=== PATIENT | male | born 1950 | race Caucasian/White ===

== ENCOUNTER 2017-01-01 21:50 | Inpatient (IN) ==
[2017-01-01] MEDS ORDERED: METHOCARBAMOL 1,000 MG/10 ML VIAL IV STA (22:11)
[2017-01-01] MEDS ORDERED: methylPREDNISolone SOD SUC 125 MG/2 ML VIAL IV STA (22:11)
[2017-01-01] MEDS ORDERED: traMADol 50 MG TABLET PO STA (22:13)
--- NOTE | 2017-01-01 22:16 | Emergency Department Note ---
Arrival - Arrival Chief Complaint: Chest Pain Stated Complaint: CHEST PAINS/HARD TO BREATHE ED Nursing Triage Note: C/O Chest pain over left breast worsening with inspiration/movement/palpation. Onset 1999 while watching TV. Pt denies injury or any heavy lifting. Mode of Arrival: Ambulatory Limitations: No Limitations Source: Patient Time Seen by Provider: 01/01/17 22:10 - History of Present Illness HPI Narrative: This 66-year-old white male presents 2 hours post onset of high left anterior axillary line mechanical chest wall pain. The patient was watching TV when he reached over to grab a beverage and felt a grabbing pain high up the left anterior chest wall. The pain has progressed such that with motion such as driving and turning the steering wheel is giving him significant discomfort. He denies any diaphoresis, shortness of breath, nausea, or vomiting associated with this episode. He does not have a prior history of cardiovascular disease. Currently he is in no acute distress but still uncomfortable. Onset (ago): hour(s) (Patient presents 2 hours post onset of symptoms) Allergies/Adverse Reactions: Allergies Allergy/AdvReac Type Severity Reaction Status Date / Time aspirin Allergy Severe ANAPHYLAXIS Verified 01/01/17 21:56 Home Medications: Home Medications Medication Instructions Recorded Confirmed Type No Known Home Medications [No 01/01/17 01/01/17 History Known Home Medications] Review of System - Review of System 12 point system: reviewed and no additional remarkable complaints except as stated - Review of System Constitutional: Present: as per HPI Respiratory: Present: as per HPI Cardiovascular: Present: as per HPI Gastrointestinal: Present: as per HPI Medical,Surgical,& Family Hx - Social History Smoking Status: Never smoker Frequency of Alcohol Use: None Type of Drug Use: None Exam Physical Examination: GENERAL: Well developed, well nourished elderly white male in no acute distress. HEENT: Normocephalic. No trauma. Moist mucous membranes. EOMI. PERRLA. ENT NML NECK: Supple. No adenopathy. CARDIAC: Regular. No murmurs. Heart rate 94 CHEST: Clear to auscultation. No respiratory distress. O2 sat 97%. Tender area high along the anterior axillary line with palpation and irritation of the area with range of motion the left arm consistent with a pectus muscle pull or spasm. ABDOMEN: Soft. Nontender. Active bowel sounds. EXTREMITIES: No trauma. Normal ROM. No pedal edema. SKIN: No diaphoresis. No rash. NEURO: Alert. Oriented 3. Motor, sensory, vibratory intact. No focal deficits. Vital Signs: Vital Signs Temperature 98.8 F 01/01/17 22:17 Pulse Rate 88 01/01/17 22:17 Respiratory Rate 14 01/01/17 22:17 Blood Pressure 156/79 01/01/17 22:17 O2 Sat by Pulse Oximetry 97 01/01/17 21:56 Course - Reevaluation(s) Reevaluation #1: Advised patient of his emboli and on questioning him about a possible source it would seem that he has had problems with left lower extremity thigh pain medially. - Consultations Consultation #1: Discussed with hospitalist service who will admit for further evaluation treatment. Results - Labs CBC & BMP: 01/01/17 22:13 01/01/17 22:13 Labs: I have reviewed the laboratory noted its gross normalcy. - Impressions EKG: Sinus rhythm at 85, normal GA interval and QRS duration. Left ventricular hypertrophy noted with nonspecific ST changes. No acute injury pattern noted. - Diagnostic Findings Procedure: Chest x-ray: image reviewed by me, report reviewed by me (Left pleural reaction left CVA but otherwise normal chest), CT - chest: image reviewed by me, report reviewed by me (Bilateral pulmonary emboli involving both lower lobes and the lingula segment. Likewise noted is possible metastatic disease to liver.) Disposition Clinical Impression: Bilateral pulmonary emboli, Possible metastatic disease to the liver Case discussed with: patient Disposition: Still a Patient Condition: Guarded Time of Disposition: 00:53
[2017-01-01 22:21] LABS: Basophils # 0.1 10*3/uL (0.0-0.2); Basophils % 0.6 % (0.0-0.8); Eosinophils # 0.2 10*3/uL (0.0-0.87); Hematocrit 44.8 VOL% (42.0-52.0); Hemoglobin 15.4 GM/DL (14.0-18.0); Immature Granulocytes % 0.6 %; Immature Granulocytes Absolute 0.07 #; Lymphocytes # 2.2 10*3/uL (1.4-4.0); Lymphocytes % 18.9 % (21.2-54.2); Mean Corpuscular HGB Conc 34.4 GM/DL (32-36); Mean Corpuscular Hemoglobin 30 PG (27-34); Mean Platelet Volume 10.2 FL (9.6-12.0); Monocytes # 1.2 10*3/uL (0.11-0.8); Monocytes % 10.7 % (1.7-12.7); Neutrophils # 7.8 10*3/uL (1.4-7.4); Neutrophils % 67.2 % (38.7-73.9); Platelet Count 212 T/CUMM (130-400); Red Blood Count 5.09 MC/CUMM (3.8-5.5); Red Cell Distribution Width 11.8 % (9.3-17.3); White Blood Count 11.6 T/CUMM (4-12)
[2017-01-01] MEDS ORDERED: METHOCARBAMOL 1,000 MG/10 ML VIAL ONE (22:27)
[2017-01-01] MEDS ORDERED: traMADol 50 MG TABLET ONE (22:27)
[2017-01-01] MEDS ORDERED: methylPREDNISolone SOD SUC 125 MG/2 ML VIAL ONE (22:27)
[2017-01-01 22:55] LABS: Alanine Aminotransferase 22 U/L (16-61); Albumin 3.8 G/DL (3.4-5.0); Alkaline Phosphatase 57 U/L (45-117); Aspartate Amino Transferase 15 U/L (0-37); Blood Urea Nitrogen 12 MG/DL (7-18); Calcium 9.5 MG/DL (8.5-10.1); Glucose 112 MG/DL (74-106); Osmolality,Calculated 279.4 MOS/KG (273-304); Potassium 3.8 MMOL/L (3.5-5.1); Sodium 140 MMOL/L (136-145); Total Protein 7.2 G/DL (6.4-8.3); Troponin I Only < 0.015 NG/ML (0.00-0.045)
[2017-01-02] MEDS ORDERED: ENOXAPARIN 100 MG/ML SYRINGE SUBCUT STA (00:03)
[2017-01-02] MEDS ORDERED: ENOXAPARIN 100 MG/ML SYRINGE SUBCUT ONE (00:07)
[2017-01-02] MEDS ORDERED: MORPHINE 2 MG/1 ML SYRINGE IV PRN (01:04)
[2017-01-02] MEDS ORDERED: BISACODYL 5 MG TABLET PO PRN (01:04)
[2017-01-02] MEDS ORDERED: ACETAMINOPHEN 325 MG TABLET PO PRN (01:04)
[2017-01-02] MEDS ORDERED: ONDANSETRON 4 MG/2 ML VIAL IV PRN (01:04)
--- NOTE | 2017-01-02 01:09 | Hospitalist History & Physical ---
Assessment and Plan (1) Pulmonary embolism, bilateral Status: Acute Current Visit: Yes (2) Lesion of liver Status: Acute Current Visit: Yes (3) Elevated blood pressure reading Status: Acute Current Visit: Yes (4) Pleuritic chest pain Status: Acute Assessment and plan: Plan: Patient appears comfortable on 2 L of O2, will admit to floor Supportive care for pleuritic chest pain, and DuoNeb breathing treatments as needed Bilateral lower extremity Dopplers We will need workup of abnormal liver findings on CT chest imaging. Will order CT abdomen pelvis. CT findings concerning for underlying malignancy. Current Visit: Yes History of Present Illness Chief complaint: Acute onset chest discomfort History of present illness: Mr. Malhotra is a 66 year old male with no routine health care, takes no daily medications, no formally diagnosed chronic health problems. He was watching TV this evening when he suddenly became short of breath, around 8 PM and had left-sided chest discomfort. This was exacerbated with deep inspiration and radiated across the chest. He rated at a 5 out of 10, relieved with pain meds in the ER. Earlier in the week he reports having proximal left thigh pain but attributed it to running outside and possibly "pulling a muscle." CT PE protocol was consistent with bilateral PE in the lower lobes and lingula. Additionally, the CT report noted multiple hypodense lesions in the liver, the etiology of which is unclear at this time. Patient denies weight loss, hematochezia, melena, abdominal pain. 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 Home Medications Medication Instructions Recorded Confirmed Type No Known Home Medications [No 01/01/17 01/01/17 History Known Home Medications] Allergies Allergy/AdvReac Type Severity Reaction Status Date / Time aspirin Allergy Severe ANAPHYLAXIS Verified 01/01/17 21:56 Medical,Surgical,& Family Hx - Medical History Cardio: No history of: CAD, Hypertension Endocrine: No history of: Diabetes Mellitus (NIDDM) Respiratory: No history of: COPD Gastrointestinal: No history of: GERD - Surgical History Abdominal Surgeries: Surgical HX of: Hernia Repair Orthopedic Surgeries: Surgical HX of;: Orthopedic Surgery - Family History Family History: Reports;: Family Hypertension - Social History Smoking Status: Never smoker Frequency of Alcohol Use: None Type of Drug Use: None Marital Status: Unknown Lives With:: Significant Other Functional capacity: independent ambulation Review of systems: A 12 point review of systems is negative except as specified in the HPI Exam - Constitutional Vitals: Period Temp Pulse Resp BP Sys/Toro Pulse Ox Last 24 Hr 98.8 F-98.8 F 88-94 14-18 156-156/79-79 97 Exam: EXAM: CONSTITUTIONAL: non toxic, NAD HEENT: NC, AT, OP benign, MINERVA, EOMI CV: RRR no m/g/r RESP: clear B/L, no w/r/r GI: abd soft, NT, ND, +bowel sounds INTEGUMENTARY: no lesions or rash EXTREMITIES: no c/c/e NEURO: no focal deficits PSYCH: unremarkable, A/O x3 Results - Labs CBC & BMP: 01/01/17 22:13 01/01/17 22:13 Lab Results: I have reviewed the past 24 hour labs - Diagnostic Findings Procedure: Chest x-ray: image reviewed by me, CT - chest: image reviewed by me, report reviewed by me
[2017-01-02] MEDS: ENOXAPARIN 100 MG/ML SYRINGE SUBCUT SCH ×2 (03:40→15:59)
[2017-01-02] MEDS ORDERED: ALBUTEROL/IPRATROPIUM 3 ML NEB RESP TX PRN (04:46)
[2017-01-02 06:15] LABS: Basophils % 0.3 % (0.0-0.8); Eosinophils % 0.1 % (0.00-10.9); Hematocrit 43.4 VOL% (42.0-52.0); Immature Granulocytes % 0.6 %; Immature Granulocytes Absolute 0.06 #; Lymphocytes # 0.7 10*3/uL (1.4-4.0); Lymphocytes % 7.6 % (21.2-54.2); Mean Corpuscular HGB Conc 34.6 GM/DL (32-36); Mean Corpuscular Hemoglobin 30 PG (27-34); Mean Corpuscular Volume 87.5 FL (87-102); Mean Platelet Volume 10.9 FL (9.6-12.0); Monocytes # 0.1 10*3/uL (0.11-0.8); Neutrophils # 8.7 10*3/uL (1.4-7.4); Neutrophils % 90.4 % (38.7-73.9); Platelet Count 214 T/CUMM (130-400); Red Blood Count 4.96 MC/CUMM (3.8-5.5); Red Cell Distribution Width 11.8 % (9.3-17.3); White Blood Count 9.6 T/CUMM (4-12)
[2017-01-02 06:37] LABS: Calcium 8.8 MG/DL (8.5-10.1); Osmolality,Calculated 275.8 MOS/KG (273-304); Potassium 4.6 MMOL/L (3.5-5.1)
--- NOTE | 2017-01-02 06:57 | CT Report ---
CT abdomen pelvis w con Indication: Multiple liver lesions Comparison: CT PE protocol 01/01/2017 Technique: CT of the abdomen and pelvis was performed following administration of intravenous contrast. Coronal and sagittal reformatted images were additionally created and submitted for review. The total DLP is 1193 mGy*cm. Dose reduction: This CT exam was performed using one or more of the following dose reduction techniques: Automated exposure control, automated adjustment of the mA and/or KV according to patient size, or use of iterative reconstruction technique. Findings: Extensive posterior atelectatic changes are noted with visualization of multiple filling defects within the lower lobe segmental pulmonary arteries compatible with multifocal pulmonary thromboemboli as detailed in on the dedicated CT PE report. No significant pleural or pericardial effusion. ABDOMEN: Liver/Gallbladder: There are multiple hypodense lesions noted throughout both lobes of the liver. The largest lesion within the anterior aspect of the left lobe measures up to 4 cm. Central hypodensity measurements are slightly greater than water. The additional hypodense lesions within the left lobe also demonstrate near water density and are indeterminate but may represent cysts. In the posterior aspect of the right lobe of the liver, there is a 3 cm lesion that does not definitely enhance but does not demonstrate central water density and is concerning for neoplasm or cyst containing hemorrhagic/proteinaceous contents. There is no prior for comparison. No biliary ductal dilatation or gallstones. Portal vein is patent. Spleen: No acute findings. Pancreas: No acute findings. Adrenals: Within normal limits. Kidneys: 4 cm cystic lesion at the upper pole the right kidney is most compatible with a cyst. There is normal excretion of contrast from both kidneys on delayed images. Bowel/mesentery: Small bowel is nondilated. No free fluid/air within the abdomen. Moderate stool throughout colon. No mesenteric adenopathy. Retroperitoneum: No evidence of aortic aneurysm or significant retroperitoneal adenopathy. PELVIS: No free fluid in the dependent pelvis. Bladder is grossly unremarkable for degree of distention. Prostate is mildly enlarged. There is no pelvic adenopathy. BONES: No acute or suspicious osseous abnormalities are identified. Moderate degenerative changes of the lower lumbar spine. IMPRESSION: 1. No acute abnormality within the abdomen or pelvis. 2. Multiple left lobe hypodense liver lesions primarily have the appearance of cysts. There is no abnormal enhancement. However, the 3 cm lesion at the posterior aspect of the right lobe does not demonstrate water density on CT measurements and is indeterminate but may represent a cyst containing hemorrhagic or proteinaceous contents or a solid lesion. Correlation with ultrasound imaging of the liver is recommended for further evaluation. 3. Multiple bilateral lower lobe pulmonary emboli which are discussed in detail on the dedicated CT PE report. 01/02/2017 6:45 AM PROCEDURE INTERPRETED AT [facility] DEPARTMENT OF RADIOLOGY Final Report Signed by: Nahum Barnett
--- NOTE | 2017-01-02 07:09 | CT Report ---
Exam: CT chest PE study The total DLP is 300 mGy*cm. Date: 01/01/2017 11:34 PM Indication: Shortness of breath Comparison: None available Technical: Images were obtained from the thoracic inlet through the lung bases with 80 cc of Omnipaque 350 with axial and coronal imaging available for review. Dose reduction: This CT exam was performed using one or more of the following dose reduction techniques: Automated exposure control, automated adjustment of the mA and/or KV according to patient size, or use of iterative reconstruction technique. Findings: Pulmonary arteries: Multifocal filling defects are noted throughout the bilateral lower segmental and subsegmental pulmonary arteries. No central or saddle pulmonary emboli are identified. The upper lobe segmental branches appear predominantly patent. There are no findings to suggest acute right heart strain/failure. Mediastinum/vessels/lymph nodes: Heart and great vessels appear grossly unremarkable with minimal atherosclerotic plaque. A two-vessel aortic arch is incidentally noted. There is no pericardial effusion. No adenopathy identified within the chest. Lungs: Prominent posterior basilar atelectatic changes are noted. There is also focal ground glass opacities within the lingula. There is no focal pneumonia. There is no pneumothorax or significant pleural effusion. Central airways are patent. Thyroid: Thyroid gland appears within normal limits. No acute abnormality is identified within the visualized upper abdomen. Multiple hypodense lesions are noted within the liver, which are not completely characterized. BONES: No acute or suspicious appearing osseous abnormalities are identified. Impression: 1. Extensive bilateral lower lobe segmental/subsegmental pulmonary emboli without findings to suggest right heart strain. No central or saddle pulmonary bladder identified. 2. Posterior basilar atelectatic changes. Minimal focal ground glass opacity in the lingula may represent minimal developing focal infectious/inflammatory infiltrate. No significant pleural effusion. 3. Nonspecific multifocal hypodense lesions within the liver. Correlate with CT abdomen/pelvis report for additional details. Preliminary report by virtual radiologic. PROCEDURE INTERPRETED AT [facility] DEPARTMENT OF RADIOLOGY Final Report Signed by: Nahum Barnett
[2017-01-02 07:38] LABS: Band Neutrophils 2 % (0-10); Hypochromasia 1+; Lymphocytes 5 % (20-55); Segmented Neutrophils 92 % (50-85); Total Cells Counted 100
[2017-01-02 07:39] LABS: Ovalocytes Slight; Platelet Estimate Normal
--- NOTE | 2017-01-02 07:50 | Ultrasound Report ---
Indication: Bilateral PE, leg pain Duplex scan of the bilateral lower extremity veins Technique: Duplex scan of the bilateral lower extremity veins using B-mode/grayscale imaging and Doppler spectral analysis and color flow Findings: Noncompressibility noted within the left common and proximal superficial femoral veins with filling defect compatible with acute occlusive thrombus. The distal superficial and popliteal veins however appear patent. Major venous structures of the right lower extremity demonstrate a normal course and caliber. There is no evidence of deep vein thrombosis. No abnormal intrinsic echogenic lesions are demonstrated in the scanned blood vessels. Veins demonstrate good compressibility with normal color flow study and spectral analysis. Impression: Acute occlusive thrombus within the left common/superficial femoral veins. Unremarkable duplex imaging of the right lower extremity veins. No evidence of DVT PROCEDURE INTERPRETED AT [facility] DEPARTMENT OF RADIOLOGY Final Report Signed by: Nahum Barnett
--- NOTE | 2017-01-02 07:54 | XRay Report ---
Exam: XR chest 2V Indication: midline chest pain Comparison study: None Findings: The heart, mediastinum, and bony structures are within normal limits. Blunting of the left costophrenic angle and bibasilar basilar opacities are noted. Upper lungs appear clear. There is no pneumothorax. Impression: Basilar opacities and blunting of left costophrenic angle may represent patchy atelectasis and or infectious/inflammatory infiltrates. Correlate with CT PE protocol for further findings. PROCEDURE INTERPRETED AT [facility] DEPARTMENT OF RADIOLOGY Final Report Signed by: Nahum Barnett
--- NOTE | 2017-01-02 08:45 | EKG Report ---
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
[2017-01-02] MEDS: PANTOPRAZOLE 40 MG TABLET PO SCH (09:34)
--- NOTE | 2017-01-02 11:55 | Hospitalist Progress Note ---
Assessment and Plan - Time spent with patient Time spent with patient: Less than 30 minutes (1) Elevated blood pressure reading Status: Acute Assessment and plan: 01/02/17 - BP has improved and stable this a.m. Will continue to monitor. Current Visit: Yes (2) Lesion of liver Status: Acute Assessment and plan: 01/02/17 CT of liver: no acute abnormality within the abdomen or pelvis Multiple left lobe hypodense liver lesions primarily have the appearance of cysts However, 3 cm lesion at the posterior aspect of the right lobe does Not demonstrate water density on CT measurements and indeterminate but may represent a cyst containgin hemorrhagic or proteinaceous contents or a solid lesion. will discuss with Dr Rosales for further recommendation. Will order ultrasound of liver.` Current Visit: Yes (3) Pleuritic chest pain Status: Acute Assessment and plan: 01/02/17 Improving. Patient verbalized improvement in the ability to take deeper breaths with mild pain compare to yesterday's pain.Will continue nasal cannula oxygen therapy. will continue DuoNeb PRN treatments as needed. Current Visit: Yes (4) Pulmonary embolism, bilateral Status: Acute Assessment and plan: 01/02/17 Will continue oxygen therapy at 2L nasal cannula. Will continue Lovenox. Current Visit: Yes Hospitalist: Subjective Interval history: 01/02/17 - Mr Malhotra verbalizes improvement in breathing, able to take in a deep breath without significant pain. Reports yesterday the pain was too great when he would take in a deep breath. Lungs clear. No edema noted in lower extremities. He denies coughing up blood, fever, chills. Exam - Constitutional Vitals: Period Temp Pulse Resp BP Sys/Toro Pulse Ox Last 24 Hr 96.7 F-98.8 F 64-94 14-20 101-156/52-79 96-98 General appearance: normal weight - Head Head exam: Present: normal inspection - Eye Eye exam: Present: EOMI Pupils: Present: MINERVA - ENT ENT exam: Present: normal exam (moist membranes) - Neck Neck exam: Present: normal inspection - Respiratory Respiratory exam: Present: clear to auscultation bilaterally. Absent: wheezes - Cardiovascular Cardiovascular exam: Present: regular rate and rhythm - GI/Abdominal GI/Abdominal exam: Present: normal bowel sounds, soft. Absent: tenderness, rebound - Extremities Exam Extremities exam: Present: full ROM. Absent: edema - Neurological Exam Neurological exam: Present: alert, oriented X3 - Psychiatric Psychiatric exam: Present: normal affect, normal mood - Skin Skin exam: Present: normal color, warm, dry Results - Labs CBC & BMP: 01/02/17 05:18 01/02/17 05:18 Lab Results: I have reviewed the past 24 hour labs - Diagnostic Findings Procedure: CT Abdomen and Pelvis: report reviewed by me (No acute abnormality within the abdomen or pelvis; multiple left lobe hypodense liver lesion primarily with appearance of cysts, 3 cm lesion at the posterior aspect of the right lobe does not demonstrate water density on CT measurements indeterminate but may represent a cyst containing hemorrhagic or proteinaceous content or a solid lesion., Correlation ultrasound of liver recommended), CT - chest: report reviewed by me (Extensive bilateral lower lobe segmental pulmonary emboli without findings to suggest right heart strain, no central or saddle pulmonary bladder identified, posterior basilar atelectatic changes, minimal focal groundglass opacity in the lingula may represent minimal developing focal infectious/inflammatory infiltrate; no significant pleural effusion, nonspecific multifocal hypodense lesions within the liver), Ultrasound: other, report reviewed by me (Venous doppler: acute occlusive thrombosis within the left common/superficial femoral veins; unremarkable duplex imaging of the right lower extremity veins; No Evidence of DVT)
--- NOTE | 2017-01-02 16:33 | Ultrasound Report ---
Exam: US liver Date:01/02/2017 12:19 PM Indication: Follow-up abnormal CT earlier today Comparison: None Findings: Liver: Liver measures possibly 15.3 cm. There is a 2.3 x 2.6 x 2.6 solid mass in the right lobe. There is a 1.8 cm cystic area and a 3.7 x 3.2 x 4.3 cm cystic area in the left hepatic lobe. A 4 mm cyst is also suspected left hepatic lobe. There is a 1.4 cm nodule in the central liver and the left hepatic lobe that appears solid as well. Hepatic and portal veins are patent. Gallbladder: Partially contracted gallbladder with the no obvious stone clearly seen. The patient was not n.p.o. CBD: 6 mm Pancreas: Visualized portion of the pancreas is unremarkable. Kidneys Right kidney: 12.7 x 5.0 x 5.9 cm. The examination reveals a 3.7 x 2.8 x 3.2 cm cyst in the upper pole. Left kidney: Not evaluated Aorta IVC: Not evaluated. Spleen: Not evaluated Ascites: None Impression: 1. Multiple solid lesions associated with scattered cystic lesions in the liver. These findings are suspicious for possible malignancy with the solid lesions. 2. Simple appearing cyst of the right kidney. Biopsy of the solid mass of the liver is recommended in the right hepatic lobe. Ultrasound images were stored and captured PROCEDURE INTERPRETED AT [facility] DEPARTMENT OF RADIOLOGY Final Report Signed by: Dr. Chucky Chaidez
--- NOTE | 2017-01-02 17:00 | Oncology Consult Note ---
History of Present Illness Chief complaint: DVT with pulmonary emboli History of present illness: Mr. 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 He presented on January 02 and was found to have DVT involving the left femoral vein system with multiple pulmonary emboli. Evaluation also revealed several large areas of abnormality in his liver on CT scan that are apparently cysts. He gives no prior history of blood clots or bleeding dyscrasias or blood disorders. He has not had into the joint and had no significant bleeding after dental extractions. In addition, his family history is negative for blood dyscrasias or bleeding disorders. His father was a surgeon and his mother was a nurse. Past medical history: Allergies: Aspirin. He has had no long-term or serious illnesses. He had a hernia repair in the left abdomen with some reinforcing material and had some problems with infection at one time. His only other surgery was left shoulder surgery several years ago. He had no sequelae from either 1 of these. Social history: He does not use alcohol or tobacco. Family history is negative for blood dyscrasias or bleeding disorders. ROS Gen.: His health has been generally good. Eyes: No history of chronic disease, infections or visual loss. ENT: He had 3 wisdom teeth extracted and had no bleeding with them. No history of chronic infections, epistaxis, chronic sore throat Lungs: No history of asthma, emphysema, hemoptysis, chronic pleurisy or long- term or chronic infections Cardiovascular: No history of angina, coronary artery disease, congestive heart failure, cardiovascular surgery or DVT/VTE GI: No history of upper or lower GI bleeding, melena, dysphagia, odynophagia, liver disease, gallbladder disease or pancreatic disease. : No history of kidney stones, chronic kidney infections or hematuria. Musculoskeletal: He complains of some mild arthralgias and arthritic pain primarily in his left hand. He is left-handed. Otherwise there is no history of chronic bone or joint pain or focal muscle atrophy or bone or joint deformity. Neurologic: No history of seizures, convulsions or paralysis. Psychiatric: No history of chronic psychiatric illness or psychiatric medications. Lymphatic: No history of significant or long-term lymphadenopathy Hematologic: No history of anemia, bleeding disorders or blood dyscrasias or long-term elevation or depression white cell count or petechiae. Skin: No history of chronic skin infections or rashes or significant skin lesions. Physical examination: General: The patient is well-developed well-nourished and in no acute distress. Eyes: He wears glasses. Lids and conjunctive are normal. ENT: His oral mucosa and pharynx are normal. His trachea is midline. He has no neck masses. Lungs: Breath sounds are normal without rubs, rales or rhonchi. There is symmetrical unlabored chest motion with respiration. Cardiovascular: His heart rhythm is regular without murmur, gallop or rub. There is no jugular venous distention, clubbing or cyanosis and no edema. Musculoskeletal: I find no significant muscle atrophy or bone or joint deformity. Neurologic: Cranial nerves II through XII are intact. There are no focal neurologic deficits. Nodes: There is no submandibular, cervical, supraclavicular or axillary adenopathy. Skin: I see no significant lesions or rashes. I will proceed with testing for some hypercoagulable conditions where the tests can be done in the face of anticoagulation and an acute thrombosis. Some studies are not worth ordering at this point because the results are affected by the fact that the patient had blood clots and has had low molecular weight heparin that was recently started. In addition, I am going to run a few tests of tumor markers because of the remote possibility that this could be related to malignancy. I would anticipate this patient will need to be on anticoagulation for at least 3 months using 1 of the factor X inhibitors. Tests that I will order include an antiphospholipid antibody, factor V Leiden, prothrombin [id number] gene mutation. I will also order a CEA and PSA and alpha- fetoprotein level. Thank you for consulting me. Home Medications Medication Instructions Recorded Confirmed Type No Known Home Medications [No 01/01/17 01/01/17 History Known Home Medications] Allergies Allergy/AdvReac Type Severity Reaction Status Date / Time aspirin Allergy Severe ANAPHYLAXIS Verified 01/01/17 21:56 Medical,Surgical,& Family Hx - Medical History Cardio: No history of: CAD, Hypertension HEENT: History of: Ear Problem (Hearing loss), Eye Problem (wears glasses) Endocrine: No history of: Diabetes Mellitus (NIDDM) Respiratory: History of: Pulmonary Embolism, Pneumonia (9 years old) No history of: COPD Gastrointestinal: No history of: GERD Hematology: History of: Clotting Problems (Present) - Surgical History Cardiac Surgeries: Patient Denies: Cardiac Catheterization, Cardiac Surgery Thoracic Surgeries: Patient denies;: Organ Transplant, Lobectomy Neurologic Surgeries: Patient denies: Neurologic Surgery HEENT Surgeries: Surgical HX of: Tonsilectomy & Adenoidectomy Abdominal Surgeries: Surgical HX of: Abdominal Surgery, Hernia Repair Reproductive Surgeries: Patient denies;: Genitourinary Surgery, Vasectomy Orthopedic Surgeries: Surgical HX of;: Orthopedic Surgery - Family History Family History: Reports;: Family Cancer (Mother-Breast cancer), Family Heart Disease (Father-Cabg), Family Hypertension Denies;: Family Anesthesia Reaction, Family Diabetes, Family Hematology, Family Psychiatric Problems, Family Stroke - Social History Smoking Status: Never smoker Frequency of Alcohol Use: None Type of Drug Use: None Exam - Constitutional Vitals: Period Temp Pulse Resp BP Sys/Toro Pulse Ox Last 24 Hr 96.7 F-98.8 F 64-94 14-20 101-156/52-79 94-98 Results - Labs CBC & BMP: 01/02/17 05:18 01/02/17 05:18
[2017-01-02 21:27] LABS: AFP Tumor < 1.3 NG/ML (0-8); Prostate Specific Antigen Diag 0.9 NG/ML (0-4)
[2017-01-03] MEDS: ENOXAPARIN 100 MG/ML SYRINGE SUBCUT SCH (02:06)
[2017-01-03 07:14] LABS: Basophils % 0.3 % (0.0-0.8); Eosinophils # 0.1 10*3/uL (0.0-0.87); Eosinophils % 0.5 % (0.00-10.9); Hematocrit 40.8 VOL% (42.0-52.0); Hemoglobin 14.2 GM/DL (14.0-18.0); Immature Granulocytes % 0.6 %; Immature Granulocytes Absolute 0.07 #; Lymphocytes # 2.5 10*3/uL (1.4-4.0); Lymphocytes % 20.8 % (21.2-54.2); Mean Corpuscular HGB Conc 34.8 GM/DL (32-36); Mean Corpuscular Hemoglobin 31 PG (27-34); Mean Corpuscular Volume 88.5 FL (87-102); Mean Platelet Volume 10.5 FL (9.6-12.0); Monocytes % 8.2 % (1.7-12.7); Neutrophils # 8.3 10*3/uL (1.4-7.4); Neutrophils % 69.6 % (38.7-73.9); Platelet Count 228 T/CUMM (130-400); Red Blood Count 4.61 MC/CUMM (3.8-5.5); Red Cell Distribution Width 11.9 % (9.3-17.3); White Blood Count 11.9 T/CUMM (4-12)
[2017-01-03 07:15] LABS: Basophils % 0.2 % (0.0-0.8); Eosinophils # 0.1 10*3/uL (0.0-0.87); Eosinophils % 0.4 % (0.00-10.9); Hematocrit 40.4 VOL% (42.0-52.0); Hemoglobin 13.9 GM/DL (14.0-18.0); Immature Granulocytes % 0.7 %; Immature Granulocytes Absolute 0.09 #; Lymphocytes # 2.3 10*3/uL (1.4-4.0); Lymphocytes % 18.3 % (21.2-54.2); Mean Corpuscular HGB Conc 34.4 GM/DL (32-36); Mean Corpuscular Hemoglobin 30 PG (27-34); Mean Corpuscular Volume 87.6 FL (87-102); Mean Platelet Volume 10.9 FL (9.6-12.0); Neutrophils % 72.4 % (38.7-73.9); Platelet Count 220 T/CUMM (130-400); Red Blood Count 4.61 MC/CUMM (3.8-5.5); Red Cell Distribution Width 11.9 % (9.3-17.3); White Blood Count 12.4 T/CUMM (4-12)
[2017-01-03 07:26] LABS: PT Patient Result 10.5 SECS
[2017-01-03 07:49] LABS: Calcium 8.7 MG/DL (8.5-10.1); Magnesium 2.3 MG/DL (1.8-2.4); Osmolality,Calculated 277.5 MOS/KG (273-304)
--- NOTE | 2017-01-03 07:51 | Oncology Progress Note ---
Oncology Subjective PN Interval history: This gentleman presented with DVT of the left femoral vein system and documented pulmonary emboli. This was his first ever episode of clotting and his personal history and family history negative for anything that would suggest to me that he had an inherited thrombophilia. He might have acquired thrombophilia. Evaluation is in progress. The tests that I ordered for thrombophilia are still pending. The tumor markers that I ordered are normal including a PSA of 0.9 with a CEA level of 0 and an alpha-fetoprotein level of less than 1.3. I am not absolutely certain of the cause of this patient's clotting problems but I would not expect to find that he had thrombophilia due to any of the 3 studies that I ordered yesterday, including antiphospholipid antibody, prothrombin gene mutation and factor V Leiden. Studies would be affected by anticoagulation and that are not valuable at this point include protein C and protein S as well as anti-thrombin 3. He evidently is for further evaluation of his liver today. If it turned out that he had an acquired thrombophilia, I would be willing to follow him but if this is not proven to be thrombophilia, he can arrange to the be followed by some other physician outpatient. I would recommend going ahead and starting him on Eliquis or Xarelto at this point. Exam - Constitutional Vitals: Period Temp Pulse Resp BP Sys/Toro Pulse Ox Last 24 Hr 97.4 F-98.5 F 72-96 18-19 96-147/53-87 94-99 Results - Labs CBC & BMP: 01/03/17 07:02 01/03/17 05:50
[2017-01-03] MEDS: PANTOPRAZOLE 40 MG TABLET PO SCH (09:37)
[2017-01-03] MEDS ORDERED: DIAZEPAM 5 MG TABLET PO ONE (12:07)
--- NOTE | 2017-01-03 12:10 | IR History and Physical Update ---
IR Pre-Procedure - History and Physical H&P was reviewed, the patient examined and there: are no changes in the patients condition since last H&P was completed. Reason for procedure:: 66-year-old male with acute pulmonary embolus and DVT. Incidental liver mass identified during workup for pulmonary embolus. Ultrasound shows it to be solid. Patient requires biopsy. Tumor markers are negative to date. - Dictation Physical: refer to H&P completed by admitting physician - Physical Exam Vital Signs: Last Vital Signs Temp 98.9 F 01/03/17 11:55 Pulse 80 01/03/17 11:55 Resp 18 01/03/17 11:55 BP 143/74 01/03/17 11:55 Pulse Ox 93 L 01/03/17 11:55 Mental Status: alert and oriented - Sedation IR anesthesia plan for sedation: none ASA Class: II - Risks Risks: Procedures explained. Risks discussed include, but not limited to, the following:[Pain, bleeding, infection] All questions answered. The following alternatives were discussed:[None] Risks and benefits discussed with: patient Consent obtained from: patient Assessment and Plan - Time spent with patient Time spent with patient: Less than 30 minutes (1) Lesion of liver Status: Acute Assessment and plan: Assessment: Hypoechoic mass right liver lobe. Plan: Biopsy. Current Visit: Yes
--- NOTE | 2017-01-03 12:47 | Hospitalist Progress Note ---
Assessment and Plan - Time spent with patient Time spent with patient: Less than 30 minutes (1) Elevated blood pressure reading Status: Acute Assessment and plan: 01/03/17 - BP continues to be stable without medication assistance. Continue to monitor. 01/02/17 - BP has improved and stable this a.m. Will continue to monitor. Current Visit: Yes (2) Lesion of liver Status: Acute Assessment and plan: 01/03/17 - Ultrasound of liver completed 01/02/17: Liver biopsy recommended and ordered for today. Dr Tomlinson will talk with patient about procedure and answer his questions. 01/02/17 CT of liver: no acute abnormality within the abdomen or pelvis Multiple left lobe hypodense liver lesions primarily have the appearance of cysts However, 3 cm lesion at the posterior aspect of the right lobe does Not demonstrate water density on CT measurements and indeterminate but may represent a cyst containgin hemorrhagic or proteinaceous contents or a solid lesion. will discuss with Dr Rosales for further recommendation. Will order ultrasound of liver.` Current Visit: Yes (3) Pleuritic chest pain Status: Acute Assessment and plan: 01/03/17 - Denies any chest pain. Will continue Lovenox for thrombosis management. 01/02/17 Improving. Patient verbalized improvement in the ability to take deeper breaths with mild pain compare to yesterday's pain.Will continue nasal cannula oxygen therapy. will continue DuoNeb PRN treatments as needed. Current Visit: Yes (4) Pulmonary embolism, bilateral Status: Acute Assessment and plan: 01/03/[address] Goodson following patient and greatly appreciate recommendations with continue of care; he recommends starting Eliquis or Xarelto. Will re-visit this recommendation after liver biopsy has been completed. Will order a.m. labs. 01/02/17 Will continue oxygen therapy at 2L nasal cannula. Will continue Lovenox. Current Visit: Yes Hospitalist: Subjective Interval history: 01/03/17 - Mr Malhotra a very pleasant 66 y/o admitted for bilateral PE, SOB with no prior history of DVT is doing fair today, he is concerned about liver findings on the CT and US. He is concerned about the unsureness of possible malignancy, but feels he needs to proceed with the suggested biopsy and wants to talk to Dr Tomlinson prior to the procedure. I assured him that Dr Tomlinson will talk to him about the procedure and be able to tell him what to expect in detail and answer questions. No family was in the room at the time of visit. I was able to answer some of his questions and visited with him a minute because he appeared to be worried this morning and just wanted to talk/ visit. Exam - Constitutional Vitals: Period Temp Pulse Resp BP Sys/Toro Pulse Ox Last 24 Hr 97.8 F-98.9 F 72-96 18-19 96-147/53-87 93-99 General appearance: normal weight - Head Head exam: Present: normal inspection - Eye Eye exam: Present: EOMI Pupils: Present: MINERVA - ENT ENT exam: Present: normal exam (moist membranes) - Neck Neck exam: Present: normal inspection - Respiratory Respiratory exam: Present: clear to auscultation bilaterally - Cardiovascular Cardiovascular exam: Present: regular rate and rhythm - GI/Abdominal GI/Abdominal exam: Present: normal bowel sounds, soft. Absent: guarding, tenderness, rebound - Extremities Exam Extremities exam: Present: full ROM. Absent: edema - Neurological Exam Neurological exam: Present: alert, oriented X3 - Psychiatric Psychiatric exam: Present: normal affect, normal mood, anxious (he is concerned about having a liver biopsy related to the abnormal findings on the liver ultrasound) - Skin Skin exam: Present: normal color, warm, dry Results - Labs CBC & BMP: 01/03/17 07:02 01/03/17 05:50 Lab Results: I have reviewed the past 24 hour labs - Diagnostic Findings Procedure: Ultrasound: report reviewed by me (01/02/17: liver: Multiple solid lesions associated with scattered cystic lesion in the liver, findings suspicious for possible malignancy with a solid lesions, simple appearing cyst of the right kidney, biopsy of solid mass of liver recommended in right hepatic lobe)
--- NOTE | 2017-01-03 13:56 | Post Interventional Procedure ---
Pre-op diagnosis: Liver mass Post-op diagnosis: same Procedure: US guided liver mass bx Radiologist: Ronny Tomlinson Anesthesia: local Specimens: other (4 x 18 ga cores) Estimated blood loss: none Complications: none Condition: stable Assessment and Plan - Time spent with patient Time spent with patient: Less than 30 minutes (1) Lesion of liver Status: Acute Assessment and plan: Assessment: Hypoechoic mass right liver lobe. Plan: Biopsy. Current Visit: Yes
--- NOTE | 2017-01-03 14:21 | Ultrasound Report ---
US biopsy liver core Indication: Hypoechoic encapsulated mass within the posterior right liver lobe. ULTRASOUND-GUIDED LIVER BIOPSY, MASS Description: A formal timeout was performed. Maximum sterile barrier technique was used. Liver was evaluated with ultrasound. Right upper quadrant was prepped and draped in sterile fashion. Lidocaine was administered. Under sonographic guidance, a 17-gauge coaxial biopsy needle was advanced into the region of interest. A captured sonographic image documents needle position. Through the needle, multiple 18-gauge core biopsies were obtained. Needle was removed. Final ultrasound images showed no evidence of hematoma. Patient tolerated the procedure well. Impression: Successful liver mass biopsy. PROCEDURE INTERPRETED AT [facility] DEPARTMENT OF RADIOLOGY Final Report Signed by: Ronny Tomlinson M.D.
[2017-01-03] MEDS: APIXABAN 5 MG TABLET PO SCH (20:04)
[2017-01-04 07:43] LABS: Carcinoembryonic Antigen < 0.5 NG/ML (0.0-5.0)
[2017-01-04] MEDS: PANTOPRAZOLE 40 MG TABLET PO SCH (08:35)
[2017-01-04] MEDS: APIXABAN 5 MG TABLET PO SCH (08:35)
--- NOTE | 2017-01-04 10:41 | Oncology Progress Note ---
Oncology Subjective PN Interval history: I have ordered multiple tests on this patient for thrombophilia. They are still pending. Among the things concerns me is that this was spontaneous thrombophlebitis with pulmonary emboli and occult malignancy needs to be kept in mind. However, tumor markers have been done and are normal including CEA, PSA and alpha-fetoprotein. If the patient has thrombophilia I will need to follow him. I will also be happy to see him at least once in follow-up when he goes home. He should be discharged on Eliquis or Xeloda. In addition, he needs a primary care physician. His daughter is a nurse and can help him with this. Exam - Constitutional Vitals: Period Temp Pulse Resp BP Sys/Toro Pulse Ox Last 24 Hr 97.2 F-98.9 F 57-80 15-21 109-143/59-78 92-98 Results - Labs CBC & BMP: 01/03/17 07:02 01/03/17 05:50 Specialty Discharge - Follow Up or Referrals
[2017-01-04 11:52] VITALS: BP 136/76
--- NOTE | 2017-01-04 14:04 | Discharge Summary ---
<Michelle Wilkinsda - Last Filed: 01/04/17 13:48> Hospital Course - Hospital Course Hospital Course: This is a very pleasant 66-year-old male that presented to the ED at [facility] on January 01, 2017 for the evaluation of an acute onset of chest pain. At the time of ED presentation the patient reported no significant medical history, however reported a surgical history of hernia repair and orthopedic surgery. The patient reported the onset of symptoms around 8 PM on the night of presentation. He reported that he was sitting watching TV when he suddenly became short of breath and started to experience some left-sided chest pain. He reported that the chest pain became severe with deep inspiration and was noted to radiate across his chest. He became alarmed and presented to the ED for further evaluation. At the time of ED presentation, the patient was given analgesics which temporarily granted him some relief from his pain. The patient reported that earlier in the week prior to presentation he developed some left thigh pain however he attributed to over exertion. The CTE protocol was activated immediately. CT chest reported multiple abnormalities including: Extensive bilateral lobe segmental/subsegmental pulmonary emboli without findings to suggest right heart strain, posterior basilar atelectasis changes and minimal focal groundglass opacity at the lingula telesales representative of minimal developing focal infectious/inflammatory infiltrate, and nonspecific multifocal hypodense lesions within the liver. Labs were obtained; complete blood count reported white blood cell count 11.6, hemoglobin 15.4, hematocrit 44.8, and platelet count of 212. Comprehensive metabolic panel reported sodium at 140, potassium 3.8, chloride 103, carbon dioxide 27, BUN 12, creatinine 0.80, glucose 112, calculated osmolality 279.4, calcium 9.5, AST 15, ALT 22, total bilirubin 0.80, alkaline phosphatase 57. Cardiac enzymes reported CKMB at 1.5, troponins were noted at less than 0.015, and total creatine kinase 133. The patient was subsequently admitted to the hospitalist services for continuation of care. Supportive care for pleuritic chest pain, inhaled bronchodilators, and enoxaparin was initiated. Bilateral venous Doppler studies reported acute occlusive thrombosis noted to the left common/superficial femoral vein. CT abdomen and pelvis reported multiple left lobe hypodense liver lesions which primarily at the time closely resembled cysts; however there was a 3 cm lesion noted at the posterior aspect of the right lobe. In addition multiple bilateral lower pulmonary embolisms were noted. An hematology/oncology consultation was requested. The patient was seen and evaluated. On January 03, 2017 the patient underwent ultrasound-guided liver mass biopsy by interventional radiology. Specimens were obtained and sent for analysis. Enoxaparin was discontinued and Eliquis was initiated. Biopsy reports are still pending. The patient's condition gradually improved. His condition is stable and he has not experienced any significant overnight events. Today, we feel that he is indeed appropriate for discharge to follow-up with his primary care physician and hematology/oncology Dr. Goodson as directed. The patient will be discharged on Eliquis per hematology/oncology recommendation. - Time spent with patient Time with patient DS: Greater than 30 minutes Specialty Discharge - Follow Up or Referrals Discharge Plan - Discharge Data Disposition: Disch To Home/Self Care - Discharge Medications New Pantoprazole Tab [Protonix Tab] 40 mg PO DAILY #30 tablet Apixaban [Eliquis] 5 mg PO BID #60 tablet - Follow Up or Referral - Forms/Instructions Instructions: Pantoprazole (By mouth), Apixaban (By mouth), Pulmonary Embolism (DC) Exam - Constitutional Vitals: Period Temp Pulse Resp BP Sys/Toro Pulse Ox Last 24 Hr 97.2 F-98.2 F 57-82 18-21 109-136/59-78 92-98 Discharge Results Procedures and tests throughout hospitalization: Pending Orders 01/02/17 17:42 Factor V Leiden (R506Q) Mutati Routine Phospholipid Ab IgG, S Routine Phospholipid Ab IgM, S Routine Prothrombin [id number] Mutation, Routine Labs on day of discharge: Labs from last 24 hours 01/02/17 17:42 Carcinoembryonic Ag < 0.5 DS: Provider Date of admission: 01/02/17 01:04 Primary care physician: . No PCP Attending physician on admission: Ascencion Roe DO Consults: 01/02/17 12:42 Consult to Physician [CONS] Routine Comment: PE ? hypercoagulable state Consulting Provider: Consult to Specialist Group: Hematology When should Consulting Provider be notified: Now Person Notified: catia Date Notified: 01/02/17 Time Notified: 14:32 Discharging clinician: Mary Wilkins CNP <Alirio Silverman Jr. - Last Filed: 01/04/17 14:26> Diagnosis - Discharge Diagnosis (1) Pulmonary embolism, bilateral Status: Chronic (2) Lesion of liver Status: Chronic Discharge Plan - Discharge Data Condition at Discharge: Stable Discharge Diet: advance to your usual diet Activity: other (Precautions regarding Eliquis. No operating of mechanical equipment such as power cells or power tools. Also avoiding power arms) Contact your physician if you experience:: fever over 101 - Forms/Instructions Additional Discharge Instructions: Patient is to be excused from work for the next 2 weeks. Recommend light duty at work as patient is on blood thinner. Follow-up with her primary provider in 1 week. Exam - Constitutional General appearance: normal weight - Head Head exam: Present: normal inspection - Eye Eye exam: Present: EOMI - ENT ENT exam: Present: normal exam - Respiratory Respiratory exam: Present: clear to auscultation bilaterally - Cardiovascular Cardiovascular exam: Present: regular rate and rhythm - GI/Abdominal GI/Abdominal exam: Present: normal bowel sounds - Extremities Exam Extremities exam: Present: normal inspection, full ROM - Neurological Exam Neurological exam: Present: alert, oriented X3, CN II-XII intact - Psychiatric Psychiatric exam: Present: normal affect, normal mood
--- NOTE | 2017-01-04 19:29 | Pathology Report from [facility] ---
[facility] [place] ACCESSION # : [id number] PATIENT NAME : Nash Sweet ORDERING DR : MARLON ATKINS MD CLINICAL HX: Acquired thrombophilia - Lesion of liver - Pulmonary embolism POST-OP DX: Same SPECIMEN INFO: Liver mass , biopsy x 4 GROSS DESCRIPTION: The specimen is received in formalin labeled with the patients name NASH SWEET and consists of multiple yellow-hawkins tissue fragments measuring from 0.1 cm to 0.4 x 0.1 cm. Submitted in one cassette. DIAGNOSIS FOR NASH SWEET: LIVER MASS, NEEDLE BIOPSIES: Small fragments of hepatic parenchyma with mild steatosis. Scant fragments of acellular fibrinoid debris suggestive of hematoma. No increase in stainable iron or PAS+/diastase resistant material. COLLECTED DATE: 01/03/2017 [facility] [place] REPORT DATE: 01/04/2017 ELECTRONICALLY SIGNED BY: Chandra Marie M.D. 01/04/2017 - 13:00:55 [facility]
[2017-01-07 15:29] LABS: Phospholipid Ab IgM, S 11.9 MPL
[2017-01-08 08:54] LABS: F5DNA Reviewed By SEE COMMENTS; Factor V Leiden (R506Q) Mutati Negative (Negative); PTNT Reviewed By SEE COMMENTS
== END 2017-01-04 15:40 | disposition home or self-care (01) | DRG 176 ==
LOC: N.ED 21:50 → SUATTDRO 01-02 01:04 → N.EDINP 01-02 01:04 → N.5E 01-02 01:41
PROVIDERS: ADMIT Internal Medicine; ATTEND Internal Medicine Nephrology